=== PATIENT | male | born 1955 | race Hispanic/Latino ===

== ENCOUNTER 2016-05-03 17:09 | Emergency (ER) | payer OTHER ==
[2016-05-04] MEDS ORDERED: PEPCID IV ONE (01:06)
[2016-05-04] MEDS ORDERED: BENADRYL IV ONE (01:06)
--- NOTE | 2016-05-04 01:11 | Emergency Department Report ---
HPI - General Chief Complaint: Allergic Reaction Time Seen by Provider: 05/04/16 00:38 - HPI HPI: The patient is a 60-year-old male who presents for evaluation of allergic reaction. The patient reports allergy reaction after taking medication at 2 PM earlier today. He complains of breaking out in red itching rash moderate in severity minutes after taking the medication. He also complains of subsequent development of elevation of his blood pressure and constant dyspnea 4 hours, moderate in severity, exacerbated with activity, improved with rest. The patient denies lip or tongue swelling, throat swelling, throat pain, chest pain , abdominal pain, dysphagia, stridor, drooling, difficulty tolerating secretions , dysphonia, hoarseness of voice, abdominal pain. ED Past Medical Hx - Past Medical History Previous Medical History?: Yes Hx Hypertension: Yes Additional medical history: back problems - Social History Smoking Status: Never Smoker Substance Use Type: None - Medications Home Medications: Home Medications Medication Instructions Recorded Confirmed Last Taken Type Diphenhydramine HCl [Benadryl 25 mg PO Q8HR PRN #20 tablet 05/04/16 Unknown Rx Allergy TAB] EPINEPHrine (NF) [Epipen (Nf)] 0.3 mg IM ONCE #1 syringekit 05/04/16 Unknown Rx Levothyroxine [Synthroid] 50 mcg PO DAILY 05/04/16 05/04/16 05/03/16 History Lisinopril [Zestril TAB] 10 mg PO QDAY 05/04/16 05/04/16 05/03/16 History Mesalamine [LiALDA] 1.2 gm PO BID 05/04/16 05/04/16 05/03/16 History Omeprazole Magnesium [PriLOSEC Otc] 20.6 mg PO QDAY 05/04/16 05/04/16 05/03/16 History predniSONE [Deltasone] 20 mg PO QDAY #3 tab 05/04/16 Unknown Rx ED Review of Systems ROS: Stated complaint: ALLERGIC REACTION Other details as noted in HPI Constitutional: denies: fever Eyes: denies: vision change ENT: denies: throat pain Respiratory: shortness of breath Cardiovascular: denies: chest pain Endocrine: flushing Gastrointestinal: denies: abdominal pain, nausea, vomiting Musculoskeletal: denies: back pain Skin: rash Neurological: denies: headache Hematological/Lymphatic: denies: easy bleeding Physical Exam - Physical Exam Vital Signs: Vital Signs 05/03/16 05/03/16 17:51 23:13 Temperature 98.3 F Pulse Rate 88 78 Respiratory 18 18 Rate Blood Pressure 143/86 148/98 O2 Sat by Pulse 98 98 Oximetry Physical Exam: General: well-nourished, well-developed, no acute distress Head: Normocephalic, atraumatic Eyes: normal sclera ENT: Mucous membranes are pink and moist, no stridor, no pooling of secretions in the posterior oropharynx, no swelling of the uvula or tonsils, no tongue or lip swelling Neck: trachea midline, neck supple, No neck stiffness, no cervical adenopathy Respiratory: Breath sounds equal bilaterally, no wheezing, rales, or rhonchi Cardio: S1 and S2 present, no murmurs, rubs, gallops, capillary refill is brisk Abdomen: Normoactive bowel sounds, soft abdomen, no tenderness Musc: No swelling of the upper extremity appreciable, No pitting edema Skin: Small circular blanching red macules present to bilateral upper extremities Neuro: no facial drooping, normal speech Psych: Normal affect ED Course Vital Signs 05/03/16 05/03/16 17:51 23:13 Temperature 98.3 F Pulse Rate 88 78 Respiratory 18 18 Rate Blood Pressure 143/86 148/98 O2 Sat by Pulse 98 98 Oximetry ED Medical Decision Making - Medical Decision Making The patient was seen and examined by myself. The patient is placed on a wood veneer taper and continuous pulse ox. On initial evaluation, the patient was found to be in no distress. Evaluation orders were placed. The patient is given IV solumedrol, IV Benadryl, and IV Pepcid. The patient was reevaluated and reported that their symptoms were markedly improved. The patient is stable for discharge with outpatient follow-up. The patient is given follow-up and return instructions. The patient expressed understanding and agreed with the plan. The patient is discharged in stable condition. Critical care attestation.: If time is entered above; I have spent that time in minutes in the direct care of this critically ill patient, excluding procedure time. ED Disposition Clinical Impression: Acute anaphylaxis Qualifiers: Encounter type: initial encounter Qualified Code(s): T78.2XXA - Anaphylactic shock, unspecified, initial encounter Disposition: DISCHARGED TO HOME OR SELFCARE Is pt being admited?: No Does the pt Need Aspirin: No Condition: Stable Instructions: Anaphylaxis (ED), Urticaria (ED) Prescriptions: Diphenhydramine HCl [Benadryl Allergy TAB] 25 mg PO Q8HR PRN #20 tablet PRN Reason: rash or itching EPINEPHrine (NF) [Epipen (Nf)] 0.3 mg IM ONCE #1 syringekit predniSONE [Deltasone] 20 mg PO QDAY #3 tab Referrals: GABRIELA GAXIOLA MD [Primary Care Provider] - 3-5 Days Time of Disposition: 01:17
[2016-05-04 02:44] VITALS: BP 150/72
== END 2016-05-04 02:00 | disposition home or self-care (01) ==
LOC: ED 17:09
DX: T78.2XXA Anaphylactic shock, unspecified, initial encounter (principal); Y92.9 Unspecified place or not applicable; I10 Essential (primary) hypertension
CPT/HCPCS: 82962; 96374; 96375; 99283; J1200; J2930